=== PATIENT | female | born 1955 | race Caucasian/White ===

== ENCOUNTER 2017-07-31 12:52 | Inpatient (IN) | payer OTHER ==
--- NOTE | 2017-07-31 13:23 | EDPHY ---
H & P Stated Complaint: fall, r hip pain Time Seen by Provider: 07/31/17 13:22 HPI/ROS: HPI: This is a 61-year-old female who presents with Chief Complaint: fall, r hip pain Location: Right lateral hip Quality: Injury Duration: 3-4 hours ago Signs and Symptoms: No bleeding, no radiation, no numbness, no weakness, no tingling, no incontinence, + decreased range of motion, no swelling, + pain Timing: Acute Severity: Moderate Context: Patient has a history of right knee total replacement April 2017 presents to the emergency room status post tripping over moving rugs this morning around 9:30 a.m. she reports that she lost her balance and landed directly onto her right outer hip. She felt immediate pain and had to stay on the floor for a few minutes until the pain eased off. Her had to help her off the floor. She complains of pain with weight-bearing on the right lower extremity. She denies any head injury/LOC/amnesia/nausea/vomiting/neck pain/paresthesias. She took naproxen this morning and is declining any other pain medications in the emergency room. Modifying Factors: Naproxen Comment: ROS: see HPI Constitutional: No fever, no chills, no weight loss Eyes: No blurred vision Respiratory: No shortness of breath, no cough Cardiovascular: No chest pain Gastrointestinal: No nausea, no vomiting no diarrhea Genitourinary: No dysuria Extremities: No myalgias Neurologic: No weakness, no numbness Skin: No rashes Hematologic: No bruising, no bleeding MEDICAL/SURGICAL/SOCIAL HISTORY: Medical/Surgical history: R knee replacement, tonsillectomy, uterine ablation, SVT Social history: . CONSTITUTIONAL: polite and cooperative, adult white female who appears younger than stated age, wake and alert, no obvious distress HEENT: Atraumatic and normocephalic, PERRL, EOMI. Tympanic membranes clear. Oropharynx clear, no exudate and moist pink mucosa. Airway patent. No lymphadenopathy. No meningismus. Cardiovascular: Normal S1/S2, regular rate, regular rhythm, without murmur rub or gallop. PULMONARY/CHEST: Symmetrical and nontender. Clear to auscultation bilaterally. Good air movement. No accessory muscle usage. ABDOMEN: Soft, nondistended, nontender, no rebound, no guarding, no peritoneal signs, no masses or organomegaly. No CVAT. EXTREMITIES: 2/2 pulses, strength 5/5, right HIP: No deformity/bruising. Tenderness to palpation over the greater trochanter area. Legs equal in right length. Flexion to 90 , extension to 75 , hyper extension to 05, abduction to 05. Moderate Pain with internal rotation and external rotation. Right KNEE : Mild inflammation noted; well-healed vertical incision from past total replacement. No medial and lateral joint line tenderness, full extension to 180 , flexion to 120. No pain with varus and valgus exam. No pain with anterior drawer or posterior drawer test. no deformities, no clubbing, no cyanosis or edema. NEUROLOGICAL: no focal neuro deficits. GCS 15. SKIN: Warm and dry, no erythema. no rash. Good capillary refill. Source: Patient, Family () Exam Limitations: No limitations - Personal History Current Tetanus/Diphtheria Vaccine: Unsure Current Tetanus Diphtheria and Acellular Pertussis (TDAP): Unsure - Medical/Surgical History Hx Asthma: No Hx Chronic Respiratory Disease: No Hx Diabetes: No Hx Cardiac Disease: No Hx Renal Disease: No Hx Cirrhosis: No Hx Alcoholism: No Hx HIV/AIDS: No Hx Splenectomy or Spleen Trauma: No Other PMH: R knee replacement, tonsilectomy, uterine ablation, SVT, - Social History Smoking Status: Former smoker Constitutional: Initial Vital Signs Temperature (C) 37 C 07/31/17 13:17 Heart Rate 83 07/31/17 13:17 Respiratory Rate 16 07/31/17 13:17 Blood Pressure 95/73 L 07/31/17 13:17 O2 Sat (%) 96 07/31/17 13:17 O2 Delivery Mode Room Air O2 (L/minute) 99 Allergies/Adverse Reactions: No Known Allergies Allergy (Unverified 07/31/17 13:16) Home Medications: Medication Instructions Recorded Loratadine 07/31/17 Naproxen Sodium 07/31/17 Medical Decision Making - Diagnostics EKG Interpretation: 1356: 12 lead EKG: Indication: Arrhythmia Rhythm: Supraventricular tachycardia, rate of 180 beats per minute Welches: Normal Intervals: Normal QRS: Normal ST segments: Nonspecific changes INTERPRETATION: No acute ischemic changes The 12 lead EKG was interpreted by myself and with attending. 1424: 12 lead EKG: Indication: Follow-up Rhythm: Normal sinus rhythm, rate 82 beats per minute Welches: Normal Intervals: Normal QRS: Normal ST segments: Normal INTERPRETATION: Normal EKG The 12 lead EKG was interpreted by myself and with attending. ED Course/Re-evaluation: Right hip x-ray ordered No neurological deficits or head injury. No signs of neurovascular compromise/tenting of skin/compartment syndrome/ extremities and joints examined above and below area of concern and are neurovascularly intact. Patient politely declines any imaging of her knee as she reports she has no pain and has full range of motion. 1350: Notified by nurse that patient appears to be an SVT on the monitor. Telemetry shows SVT with rate in the 190s. Discussed case with attending Dr. Martinez. Valsalva maneuver x2 tried unsuccessfully. The patient placed on psychopaedic nurse, 2 L oxygen therapy, 500 cc fluid bolus, IV Dilaudid 1 mg given with conversion into normal sinus rhythm and rate in the 80s after only a few minutes. Patient has a history of SVT; reports more than 50+ episodes; all were able to be corrected with Valsalva maneuver. 1400: EKG shows SVT with a rate of 180; mild ST depression. Patient sitting on edge of bed. IV Dilaudid 1 mg given for pain control to get patient to sit in bed safely. 1415: Telemetry shows normal sinus with rate in the 80s. Currently has no complaints of chest pain/shortness of breath/palpitations. Resting comfortably in the bed. 1500: Right hip x-ray my read shows intracapsular; minimally displaced fracture. Consult to Dr. Victor. Last meal a bowl of cereal at 11:30 a.m. reports pain currently under control. Dr. Gustafson in [place] performed right knee total replacement. 1515: Spoke with Dr. Victor who kindly agrees to provide patient for further care and surgery. He will come down to the emergency room to speak with the patient. He asked that I consult the hospitalist in regards to the SVT episode in the emergency room and admission. Spoke with Dr. Hutson, who kindly agrees. 1530: Updated patient and on plan. Denies any pain at this time. Differential Diagnosis: Differential diagnosis includes but is not limited to femur fracture, lumbar strain, hip contusion. - Data Points Laboratory Results: Laboratory Results 07/31/17 14:10 07/31/17 14:10 07/31/17 07/31/17 07/31/17 14:10 14:10 14:10 WBC 12.15 10^3/uL H 10^3/uL (3.80-9.50) RBC 5.15 10^6/uL 10^6/uL (4.18-5.33) Hgb 15.2 g/dL g/dL (12.6-16.3) Hct 45.4 % % (38.0-47.0) MCV 88.2 fL fL (81.5-99.8) MCH 29.5 pg pg (27.9-34.1) MCHC 33.5 g/dL g/dL (32.4-36.7) RDW 13.7 % % (11.5-15.2) Plt Count 317 10^3/uL 10^3/uL (150-400) MPV 8.2 fL L fL (8.7-11.7) Neut % (Auto) 71.8 % % (39.3-74.2) Lymph % (Auto) 20.3 % % (15.0-45.0) Spencer % (Auto) 5.9 % % (4.5-13.0) Eos % (Auto) 1.2 % % (0.6-7.6) Baso % (Auto) 0.3 % % (0.3-1.7) Nucleat RBC Rel Count 0.0 % % (0.0-0.2) Absolute Neuts (auto) 8.72 10^3/uL H 10^3/uL (1.70-6.50) Absolute Lymphs (auto) 2.47 10^3/uL 10^3/uL (1.00-3.00) Absolute Monos (auto) 0.72 10^3/uL 10^3/uL (0.30-0.80) Absolute Eos (auto) 0.14 10^3/uL 10^3/uL (0.03-0.40) Absolute Basos (auto) 0.04 10^3/uL 10^3/uL (0.02-0.10) Absolute Nucleated RBC 0.00 10^3/uL 10^3/uL (0-0.01) Immature Gran % 0.5 % % (0.0-1.1) Immature Gran # 0.06 10^3/uL 10^3/uL (0.00-0.10) PT 12.7 SEC SEC (12.0-15.0) INR 0.93 (0.83-1.16) APTT 29.9 SEC SEC (23.0-38.0) Sodium 139 mEq/L mEq/L (135-145) Potassium 4.3 mEq/L mEq/L (3.5-5.2) Chloride 105 mEq/L mEq/L (97-110) Carbon Dioxide 18 mEq/l L mEq/l (22-31) Anion Gap 16 mEq/L mEq/L (8-16) BUN 11 mg/dL mg/dL (7-23) Creatinine 0.6 mg/dL mg/dL (0.6-1.0) Estimated GFR > 60 Glucose 121 mg/dL H mg/dL (70-100) Calcium 10.2 mg/dL mg/dL (8.5-10.4) Troponin I < 0.012 ng/mL ng/mL (0.000-0.034) Medications Given: Discontinued Medications Adenosine (Adenosine) 12 mg IVP EDNOW ONE Stop: 07/31/17 13:52 Last Admin: 07/31/17 14:21 Dose: Not Given Hydromorphone HCl (Dilaudid) 1 mg IVP EDNOW ONE Stop: 07/31/17 13:59 Last Admin: 07/31/17 14:16 Dose: 1 mg Sodium Chloride (Ns) 500 mls @ 1,000 mls/hr IV EDNOW ONE PRN Reason: Protocol Stop: 07/31/17 14:20 Last Admin: 07/31/17 14:16 Dose: 500 mls Departure - Departure Disposition: [facility] Inpatient Acute Clinical Impression: Paroxysmal SVT (supraventricular tachycardia) Closed intracapsular fracture of femur Qualifiers: Encounter type: initial encounter Laterality: right Qualified Code(s): S72.011A - Unspecified intracapsular fracture of right femur, initial encounter for closed fracture Condition: Fair
[2017-07-31] MEDS ORDERED: NS 500 ML IV ONE (13:51)
[2017-07-31] MEDS ORDERED: ADENOSINE 6 MG/2 ML VIAL IVP ONE (13:51)
[2017-07-31] MEDS ORDERED: HYDROmorphONE/DILAUDID 1 MG/ML INJ IVP ONE (13:58)
[2017-07-31] MEDS ORDERED: HYDROmorphONE/DILAUDID 1 MG/ML INJ ONE (13:58)
--- NOTE | 2017-07-31 13:58 | CPEKG ---
Heart Rate: 180 RR Interval: 333 QRSD Interval: 84 QT Interval: 260 QTC Interval: 451 P [place]: 0 QRS [place]: 59 T Wave [place]: 29 EKG Severity - ABNORMAL ECG - EKG Impression: SUPRAVENTRICULAR TACHYCARDIA EKG Impression: ST DEPRESSION, PROBABLY RATE RELATED Electronically Signed By: J Carlos Gorodn 31-Jul-2017 19:58:45
[2017-07-31 14:20] LABS: PLATELET COUNT 317 10^3/uL (150-400)
--- NOTE | 2017-07-31 14:25 | CPEKG ---
Heart Rate: 82 RR Interval: 732 P-R Interval: 144 QRSD Interval: 90 QT Interval: 364 QTC Interval: 425 P [place]: 79 QRS [place]: 52 T Wave [place]: 59 EKG Severity - NORMAL ECG - EKG Impression: SINUS RHYTHM Electronically Signed By: J Carlos Gordon 31-Jul-2017 19:58:45
[2017-07-31 14:28] LABS: INR 0.93 (0.83-1.16); PROTIME(PATIENT) 12.7 SEC (12.0-15.0)
[2017-07-31] MEDS ORDERED: HYDROmorphONE/DILAUDID 1 MG/ML INJ IVP PRN (16:11)
[2017-07-31] MEDS ORDERED: oxyCODONE IR 5 MG TAB PO PRN (16:11)
[2017-07-31] MEDS ORDERED: ACETAMINOPHEN 325 MG TAB PO PRN (16:11)
[2017-07-31] MEDS ORDERED: ONDANSETRON DISINTEGRATING 4 MG TAB PO PRN (16:11)
[2017-07-31] MEDS ORDERED: ONDANSETRON 4 MG/2 ML VIAL IVP PRN ×2 (16:11→21:26)
--- NOTE | 2017-07-31 16:39 | GHP ---
[f rep st] HISTORY AND PHYSICAL DATE OF ADMISSION: 07/31/2017 CHIEF COMPLAINT: Fall. HISTORY OF PRESENT ILLNESS: A 61-year-old female who fell today. Notably she had a right TKA 3 mir[address] Gustafson at the [facility]. She tripped over some moving blankets in her gar age. In an effort not to fall on her recently replaced knee, she spun and fell on her right hip. Minal oconnell had immediate hip pain. She was initially able to bear a little bit of weight on this hip. She th en sat down for some time, after that was unable to bear any weight. She has feeling in her foot. I n the ED, she was noted to have an episode of SVT. She notes that she has had these episodes for pro bably 7 years. They usually abort with Valsalva type maneuvers. This one did as well in the ED. Minal oconnell has a sensation of palpitations and mild tightness; however, no real chest pain. Otherwise, she wa s able to ambulate with no angina and achieve high heart rates with exercise prior to her TKA. She w as seen by a mule spinner Dr. Holt at the [facility] who reportedly cleared her for surgery. I revi ewed his note, and his note talks not necessarily about surgery but about catheter ablation options f or SVT. PAST MEDICAL/SURGICAL HISTORY: 1. SVT. 2. Seasonal allergies. MEDICATIONS: Please see medication reconciliation. ALLERGIES: No known drug allergies. SOCIAL HISTORY: She drinks about a glass a day of wine. FAMILY HISTORY: Reviewed and noncontributory. REVIEW OF SYSTEMS: 10-point review of systems is conducted and is negative except per HPI. PHYSICAL EXAM: VITAL SIGNS: Blood pressure 95/73, heart rate 83, respiration rate 16, saturating 96 % on room air. Temperature 37. GENERAL: The patient is a very pleasant female who is resting sligh tly uncomfortably. HEENT: Shows her to be normocephalic, atraumatic. CARDIOVASCULAR: Shows regula r rate and rhythm. No murmurs, rubs, or gallops. PULMONARY: Lungs clear to auscultation bilaterall y. ABDOMEN: Soft, nontender, nondistended. SKIN: No rash. : No Schwartz. NEUROLOGIC: Shows her to be alert and oriented x3. She is moving all extremities. PSYCHIATRIC: Shows normal mood and af fect. EXTREMITIES: Shows her right extremity to be slightly externally rotated. She has a dorsalis pedis pulse. She has sensation intact in the right foot. There is no bruising at the site of injur y. LABORATORY: Bicarb is 18. Troponins negative. INR 0.9. White count is 12. DATA: 1. I discussed this with Dr. Victor. He will plan on doing surgery tonight. 2. I personally viewed and interpreted her chest x-ray. This shows a normal-sized heart. This is c lear. 3. I reviewed her 2 EKGs. The first one is sinus rhythm. This is a normal EKG. There are no T-wav e inversions. No Q waves. 4. I reviewed her second EKG. This shows SVT. She has some likely rate-related ST depression in th e precordial leads. 5. I personally viewed and interpreted her hip x-ray that shows minimally displaced and impacted rig ht femoral neck fracture. IMPRESSION AND PLAN: 1. Right femoral neck fracture: Plan operative repair with Dr. Victor who planned to place surgic al screws tonight. Postop management will be per him. 2. Perioperative evaluation: She is able to exercise and achieve greater than 4 METs. She does hav e known supraventricular tachycardia, which has been evaluated by Cardiology. I did also discuss thi s informally with Dr. Saleh. Given the somewhat urgent nature of her surgery, I recommend that she proceed to surgery with no further intervention. This is a stable arrhythmia; we would not pursue ca theter ablation prior to surgery. I do not know that she will tolerate beta blockade given her sligh tly low blood pressure at this time. If she has arrhythmias, we will be available to assist perioper atively. 3. Venous thromboembolism risk: She will be at high risk postop. We will start DVT prophylaxis whe kenya farfaned by Dr. Victor. /[id number]/MODL
--- NOTE | 2017-07-31 16:59 | GCON ---
[f rep st] CONSULTATION ORTHOPEDIC CONSULTATION. REASON FOR CONSULTATION: Right hip fracture. HISTORY OF PRESENT ILLNESS: Tri is a 61-year-old female, who tripped over some rugs today and land ed directly onto her right hip and sustained a nondisplaced femoral neck fracture. She had an episod e of SVT in the emergency department, which she has had before. She recently underwent a right total knee arthroplasty down at the [place] and was cleared for that and we have gotten records from [facility] there who cleared her for her previous elective knee surgery. Other than that, she is healthy. PAST MEDICAL HISTORY: SVT. PAST SURGICAL HISTORY: Multiple right knee surgeries culminating in a right total knee arthroplasty 3-months ago. MEDICATIONS: 1. Naproxen. 2. Loratadine. ALLERGIES: No known drug allergies. She does have seasonal allergies. SOCIAL HISTORY: She is . Works at [employer]. Lives here in town. Former smoker, not currently smo steve. Occasional alcohol use. REVIEW OF SYSTEMS: No shortness of breath. Currently no chest pain. PHYSICAL EXAMINATION: VITAL SIGNS: Blood pressure is 95/73, heart rate 83, temperature is 37, respi ratory rate 16 on room air, oxygen saturation 96%. GENERAL: Alert and oriented x3. HEENT: Normoce phalic, atraumatic. Extraocular muscles intact. NECK: Supple. There is no lymphadenopathy. No JV D. CHEST: Clear to auscultation. CARDIOVASCULAR: Regular rate and rhythm. ABDOMEN: Soft, nonten lizett, nondistended. X-RAYS: AP pelvis and a frogleg show a minimally displaced femoral neck fracture. ASSESSMENT: Right hip fracture. PLAN: We have asked the Hospitalist, Dr. Hutson, to consult on this patient. He will admit her. Bimal oconnell has already spoken to Cardiology who has cleared her for surgery. He has also spoken with the Card iologist love at [facility] and obtain those records and review them. We will plan on surgery at [facility]. She last ate at 11:30 this morning. We will plan on percutaneous pinning of her righ t hip. She will be toe-touch weightbearing for 4 to 6 weeks postoperatively, which she understands. She will be on a blood thinner. We talked about the risks and benefits including infection, blood c lots, and the need to limit her weightbearing in the initial postoperative period. She understands t hat. Preoperative paperwork was completed. Consent was signed. /[id number]/MODL
[2017-07-31] MEDS ORDERED: ceFAZolin 2 GM/DEXTROSE 100 ML IV ONE (18:13)
[2017-07-31] MEDS ORDERED: ceFAZolin 2 GM/SWFI 2 GM/20 ML SYR IVP ONE (18:30)
--- NOTE | 2017-07-31 19:33 | PDANEPAE ---
ANE History of Present Illness Right Hip ORIF ANE Past Medical History - Cardiovascular History Hx Hypertension: Yes Hx Arrhythmias: No Hx Coronary Artery / Peripheral Vascular Disease: No Hx CHF / Valvular Disease: No - Pulmonary History Hx COPD: No Hx Recent Upper Respiratory Infection: No Hx Oxygen in Use at Home: No Hx Sleep Apnea: No Sleep Apnea Screening Result - Last Documented: Negative - Endocrine History Hx Diabetes: No Hypothyroid: No Hyperthyroid: No Obesity: no - Chronic Pain History Chronic Pain: Yes ANE Review of Systems Review of Systems: - Exercise capacity METS (RN): 4 METS ANE Patient History - Allergies Allergies/Adverse Reactions: No Known Allergies Allergy (Verified 07/31/17 16:59) - Home Medications Home Medications: Ascorbic Acid [Vitamin C 500 mg (*)] 4,000 mg PO DAILY 07/31/17 [Last Taken ] Ibuprofen [Motrin (*)] 400 mg PO Q2D PRN 07/31/17 [Last Taken 07/30/17] Loratadine [Claritin 10 mg] 10 mg PO DAILY 07/31/17 [Last Taken 07/31/17] Multivitamins [Multivitamin (*)] 1 each PO DAILY 07/31/17 [Last Taken 07/31/17] Naproxen [Naprosyn] 500 mg PO Q2D 07/31/17 [Last Taken 07/31/17] - NPO status NPO Since - Liquids (Date): 07/31/17 NPO Since - Liquids (Time): 11:30 NPO Since - Solids (Date): 07/31/17 NPO Since - Solids (Time): 11:30 - Anes Hx Anes Hx: post operative nausea - Smoking Hx Smoking Status: Former smoker - Alcohol Use Alcohol Use: Occasionally - Family Anes Hx Family Anes Hx: none ANE Labs/Vital Signs - Labs Result Diagrams: 07/31/17 14:10 07/31/17 14:10 - Vital Signs Blood Pressure: 123/72 Heart Rate: 73 Respiratory Rate: 16 O2 Sat (%): 94 Height: 187.96 cm Weight: 74.843 kg ANE Physical Exam - Airway Mallampati Score: Class 1 - Pulmonary Pulmonary: no respiratory distress - Cardiovascular Cardiovascular: regular rate and rhythym - ASA Status ASA Status: II ANE Anesthesia Plan Anesthesia Plan: spinal Total IV Anesthesia: Yes
[2017-07-31] MEDS ORDERED: MIDAZOLAM 2 MG/2 ML VIAL IVP ONE (19:35)
[2017-07-31] MEDS ORDERED: BUPIVACAINE/EPI 0.5% 30 ML SDV ONE (19:41)
[2017-07-31] MEDS ORDERED: BUPIVACAINE 0.5% 30 ML SDV ONE (19:49)
[2017-07-31] MEDS ORDERED: PROPOFOL 200 MG/20 ML VIAL ONE ×2 (19:52)
[2017-07-31] MEDS ORDERED: fentaNYL 100 MCG/2 ML INJ ONE (19:52)
[2017-07-31] MEDS ORDERED: HYDROCODONE/APAP 5/325 TAB PO PRN ×2 (21:25→21:26)
[2017-07-31] MEDS ORDERED: MEPERIDINE 25 MG/ML SYR IVP PRN (21:26)
[2017-07-31] MEDS ORDERED: NALOXONE HCL 0.4 MG/ML INJ IVP PRN (21:26)
[2017-07-31] MEDS ORDERED: fentaNYL 100 MCG/2 ML INJ IVP PRN (21:26)
[2017-07-31] MEDS ORDERED: OXYCODONE/APAP 5/325 TAB PO PRN (21:26)
[2017-07-31] MEDS ORDERED: D5W 1/2 NS W/ 20 KCl/L 1,000 ML IV SCH (21:30)
--- NOTE | 2017-07-31 21:32 | POSTOPPROG ---
Post Op Note Date of Operation: 07/31/17 Surgeon: Aaron Victor Anesthesiologist: nishant Anesthesia: Spinal Pre-op Diagnosis: RT femoral neck fracture Post-op Diagnosis: same Procedure: PCP rt hip Findings: min displaced fem neck fx Inf/Abcess present in the surg proc area at time of surgery?: No EBL: Minimal Complications: none
[2017-07-31] MEDS ORDERED: ceFAZolin 2 GM/DEXTROSE 100 ML IV SCH (22:00)
[2017-08-01] MEDS: OXYCODONE/APAP 5/325 TAB PO PRN ×3 (02:09→14:00)
[2017-08-01] MEDS: ceFAZolin 2 GM/SWFI 2 GM/20 ML SYR IVP SCH ×2 (03:21→12:22)
--- NOTE | 2017-08-01 04:16 | GOP ---
[f rep st] OPERATIVE REPORT DATE OF OPERATION: 07/31/2017 SURGEON: Aaron Victor MD ANESTHESIA: Spinal. ANESTHESIOLOGIST: Dr. Saunders. PREOPERATIVE DIAGNOSIS: Minimally displaced femoral neck fracture, right. POSTOPERATIVE DIAGNOSIS: Minimally displaced femoral neck fracture, right. PROCEDURE PERFORMED: Percutaneous pinning of femoral neck fracture, right. FINDINGS: ESTIMATED BLOOD LOSS: Minimal. INDICATIONS: The patient is a 61-year-old female who tripped and fell, landed directly on her right hip. She was brought to the emergency room. X-rays were obtained, which showed a minimally displace d femoral neck fracture. There is no evidence of osteoarthritis within the joint. Decision was made to proceed with a percutaneous pinning of the hip. DESCRIPTION OF PROCEDURE: After appropriate informed consent was obtained, patient was taken to the operating room, placed supine on the operating table. Time-out was performed. Patient was identifie d, correct site was identified, matched with the radiographs available in the room. She received 2 g of Ancef preoperatively. Following spinal anesthetic by Dr. Saunders, she was transferred over to the fracture table. Right lower extremity was placed in a traction boot. Left lower extremity was plac ed in a well-padded well leg mckeon. All bony prominences were well padded. I then added a little t raction and internal rotation, was able to reduce the fracture. We then prepped and draped the right hip in the usual sterile fashion. I placed 3 guide pins in an inverted triangle fashion, confirming that our trajectory in position with AP and lateral fluoroscopic images. I then made a small alexsander i ncision in the skin. Drilled the near cortex and placed 3 partially threaded cannulated screws, secu rely affixing the fracture. I confirmed their final position with a satisfactory tip to apex distance on both AP and lateral fluoroscopic imaging. Guidewires were removed. I closed the skin with 3-0 n ylon. Instilled 20 mL of 0.5% Marcaine with epinephrine around the incision. An occlusive sterile d ressing was applied. She was awakened from anesthesia, taken to the recovery room in satisfactory co ndition. There were no immediate intraoperative complications. COMPLICATIONS: None. IMPLANTS USED: [employer] partially threaded 6.5 mm cannulated screws x3. /[id number]/MODL
[2017-08-01 05:20] LABS: PLATELET COUNT 274 10^3/uL (150-400)
[2017-08-01 07:44] VITALS: TEMP 98.1
[2017-08-01] MEDS ORDERED: RIVAROXABAN 10 MG TAB PO SCH (09:00)
[2017-08-01] MEDS ORDERED: CETIRIZINE 10 MG TAB PO SCH (09:00)
--- NOTE | 2017-08-01 10:25 | POSTANESTH ---
Post Anesthetic Evaluation Cardiovascular Status: Normal, Stable Respiratory Status: Normal, Stable Level of Consciousness/Mental Status: Can Participate in Eval Pain Control: Adequate, Prn Tx Ordered Nausea/Vomiting Control: Adequate, Prn Tx Ordered Complications Possibly Related to Anesthesia: None Noted (Spinal needle site dry. Nontender, No inflamation)
--- NOTE | 2017-08-01 10:40 | PDMN ---
Medical Necessity Medical necessity: S600 displaced fx of femoral neck: 3 days femoral neck fx : in pt with hx of SVT,
--- NOTE | 2017-08-01 11:24 | PDIAF ---
- Diagnosis Diagnosis: hip fx Code Status: Full Code - Medication Management Discharge Medications: Medications to Continue on Transfer Ascorbic Acid [Vitamin C 500 mg (*)] 4,000 mg PO DAILY 07/31/17 [Last Taken ] Loratadine [Claritin 10 mg] 10 mg PO DAILY 07/31/17 [Last Taken 07/31/17] Multivitamins [Multivitamin (*)] 1 each PO DAILY 07/31/17 [Last Taken 07/31/17] Acetaminophen [Tylenol 325mg (*)] 650 mg PO Q4HRS PRN tab 08/01/17 [Last Taken Unknown] Rivaroxaban [Xarelto 10mg (*)] 10 mg PO DAILY #21 tab 08/01/17 [Last Taken Unknown] oxyCODONE/APAP 5/325 [Percocet 5/325 (*)] 1 - 2 tab PO Q3HRS PRN #15 tab [Last Taken Unknown] Discharge Medications: Refer to the Discharge Home Medication list for PRN reason. PICC Care - Routine: N/A - Orders Services needed: Home Care, Physical Therapy Home Care Face to Face: I certify that this patient was under my care and that I had the required [id number] encounter meeting the encounter requirements on the discharge day. My findings support the fact that the patient is homebound as defined in Home Care Face to Face Continued: CMS Chapter 7 Medicare Benefits Manual 30.1.1 , The condition of the patient is such that there exists a normal inability to leave home and consequently, leaving home would require a considerable and taxing effort. Diet Recommendation: no restrictions on diet - Follow Up Care Current Providers and Referrals: Tami Ballard MD [Primary Care Provider] - Aaron Victor MD [Medical Doctor] -
[2017-08-01 12:17] VITALS: BP 85/49; PULSE 82; RESP 17; O2SAT 93
--- NOTE | 2017-08-01 12:37 | ASMTLACE ---
JESUSE Length of stay for Answers: 2 days current admission Acuity / Level of Answers: Yes Care: Did the patient have an inpatient admission? # of Emergency department Answers: 1-2 visits in the last 6 months Score: 6 Date Signed: 08/01/2017 12:36 PM Electronically Signed By:Josselin Light RN
--- NOTE | 2017-08-01 16:15 | ASDISCHSUM ---
Discharge Information Plan Status:Home with Home Health Medically Cleared to Leave: Discharge Date:08/01/2017 03:07 PM CM D/C Disposition:Home Health Service ADT D/C Disposition:Home Health Service Projected Discharge Date:08/01/2017 11:00 AM Transportation at D/C: Discharge Delay Reason: Follow-Up Date:08/01/2017 11:00 AM Discharge Slot: Final Diagnosis: Placement Information Referral Type:*Home Health Care Services Referral ID:[id number] Provider Name:[facility] [place] Address 1:[address] Phone Number: Address 2: Fax Number: City:[place] Selection Factors: State:[place] Patient Contact Information Contact Name:YANELY Relationship:Life Partner Address:[address] Work Phone: City:[facility] Phone: State/Zip Code:[place] [address] Email: Financial Information Financial Class:HMO and PPO Plans Primary Plan Desc:[employer] Primary Plan Number:[id number] Secondary Plan Desc: Secondary Plan Number: Assessment Information Case Management Discharge Plan Note Case Management Discharge Discharge Order Complete? Answers: Yes Patient to Obtain Answers: via Family Medications Transportation Arranged Answers: Family/Friends Faxed Final Orders Answers: Yes Agency/Facility Transfer Answers: Yes Report Printed & Faxed to Receiving Agency Family Notified Answers: Yes Notes: pt contacted Discharge Comments Notes: Reviewed chart and discussed w/hospitalist who said pt will need Home PT. Pt will dc home with today and will be followed by [facility], the agency she has used in recent past. Spoke w/Kendra at [facility] who said they could accept pt. Orders/info sent through [employer]. Discussed dc poc w/pt. Date Signed: 08/01/2017 12:34 PM Electronically Signed By:Josselin Light RN LACE LACE Length of stay for Answers: 2 days current admission Acuity / Level of Answers: Yes Care: Did the patient have an inpatient admission? # of Emergency department Answers: 1-2 visits in the last 6 months Score: 6 Date Signed: 08/01/2017 12:36 PM Electronically Signed By:Josselin Light RN Intervention Information
--- NOTE | 2017-08-02 01:36 | GDS ---
[f rep st] DISCHARGE SUMMARY DISCHARGE DIAGNOSES: 1. Femoral neck fracture. 2. Pain. CONSULTATIONS: Dr. Victor of Orthopedics. PHYSICAL EXAM: GENERAL: The patient is alert. VITAL SIGNS: Afebrile at 36.7, pulse is 67, respira tory rate is 16, blood pressure is 107/46. She is saturating greater than 90% on room air. I have seen and evaluated the patient on the day of discharge. HOSPITAL COURSE: The patient is a 61-year-old female who presented to the emergency room after suffe ring a mechanical fall. She presented with hip pain. During this hospitalization she was evaluated and diagnosed with a right femoral neck fracture. She received a consultation from Dr. Victor as anna burden as surgical intervention with percutaneous pinning. She has worked with physical therapy. Her p ain is well controlled, and she is eager to be discharged home. There are no pending studies. DISCHARGE MEDICATIONS: Please refer to EMR form. I have provided the patient a prescription for Xar elto as well as Percocet. I reviewed the patient's disposition with Dr. Victor, who is in agreemen t with this plan. Patient will be discharged home to follow up with her primary care physician as we ll as Dr. Victor in 3 weeks for x-rays and suture removal. I spent greater than 35 minutes in the care, coordination, and management of this patient's dispositi on. /[id number]/MODL
== END 2017-08-01 15:07 | disposition home health service (06) | DRG 481 ==
LOC: F3N 17:19
PROVIDERS: ADMIT Student in an Organized Health Care Education/Training Program; ATTEND Hospitalist
PROC: 0QS634Z Reposition Right Upper Femur with Internal Fixation Device, Percutaneous Approach (ICD-10-PCS; principal; 2017-07-31 19:30)
DX: S72.001A Fracture of unspecified part of neck of right femur, initial encounter for closed fracture (principal); W01.0XXA Fall on same level from slipping, tripping and stumbling without subsequent striking against object, initial encounter; Y92.015 Private garage of single-family (private) house as the place of occurrence of the external cause; I47.1 Supraventricular tachycardia; I10 Essential (primary) hypertension; Z87.891 Personal history of nicotine dependence
CPT/HCPCS: 96374; 97116-GP; 97161-GP; 97166-GO; 97535-GO; C1713; C1769; J0153; J0690; J1170; J2250; J2704; J3010

== ENCOUNTER → 2017-12-28 | Outpatient (CLI) | payer OTHER | LOC: BMCIMAGING 08:27 | PROVIDERS: ATTEND Family Medicine | DX: Z12.31 Encounter for screening mammogram for malignant neoplasm of breast (principal) ==

== ENCOUNTER 2018-04-19 10:49 | Emergency (ER) | payer OTHER ==
[2018-04-19] MEDS ORDERED: ADENOSINE 6 MG/2 ML VIAL ONE (10:58)
[2018-04-19] MEDS ORDERED: NS 1,000 ML IV ONE ×3 (11:03)
--- NOTE | 2018-04-19 11:05 | EDPHY ---
H & P Stated Complaint: Palpitations nausea since 8am, hx SVT , and has URI Time Seen by Provider: 04/19/18 10:50 HPI/ROS: CHIEF COMPLAINT: Upper respiratory infection, SVT HISTORY OF PRESENT ILLNESS: The patient presents to the ED with a several day history of an upper respiratory infection characterized with symptoms of cough, myalgias and fatigue. The patient went to urgent care today and was noted to be tachycardic and in an SVT. She was referred to the ED for further evaluation. She does have a history of PSVT and has been offered ablation in the past which she has declined. The patient reports her last episode of SVT was following a orthopedic injury and it resolved with pain control. The patient denies any asymmetric calf pain or swelling. She denies significant abdominal pain. She does report nausea. She takes no regular medications. REVIEW OF SYSTEMS: A comprehensive 10 point review of systems is otherwise negative aside from elements mentioned in the history of present illness. Source: Patient Exam Limitations: No limitations - Medical/Surgical History Hx Asthma: No Hx Chronic Respiratory Disease: No Hx Diabetes: No Hx Cardiac Disease: No Hx Renal Disease: No Hx Cirrhosis: No Hx Alcoholism: No Hx HIV/AIDS: No Hx Splenectomy or Spleen Trauma: No Other PMH: R knee replacement x 2, tonsilectomy, uterine ablation, SVT, - Social History Smoking Status: Former smoker - Physical Exam Exam: General Appearance: Alert, no distress Eyes: Pupils equal and round no pallor or injection ENT, Mouth: Mucous membranes moist Respiratory: Coarse breath sounds bilaterally Cardiovascular: Tachycardic and regular Gastrointestinal: Abdomen is soft and nontender, no masses, bowel sounds normal Neurological: A&O, normal motor function, normal sensory exam, normal cranial nerves Skin: Warm and dry, no rashes Musculoskeletal: Neck is supple nontender Extremities: symmetrical, full range of motion Psychiatric: Patient is oriented X 3, there is no agitation Constitutional: Initial Vital Signs Temperature (C) 37.0 C 04/19/18 10:50 Heart Rate 186 H 04/19/18 10:50 Respiratory Rate 18 04/19/18 10:50 Blood Pressure 87/62 L 04/19/18 10:50 O2 Sat (%) 95 04/19/18 10:50 O2 Delivery Mode Room Air Allergies/Adverse Reactions: No Known Allergies Allergy (Verified 07/31/17 16:59) Home Medications: Medication Instructions Recorded Ascorbic Acid [Vitamin C 500 mg 4,000 mg PO DAILY 07/31/17 (*)] Loratadine [Claritin 10 mg] 10 mg PO DAILY 07/31/17 Multivitamins [Multivitamin (*)] 1 each PO DAILY 07/31/17 Acetaminophen [Tylenol 325mg (*)] 650 mg PO Q4HRS PRN tab 08/01/17 Rivaroxaban [Xarelto 10mg (*)] 10 mg PO DAILY #21 tab 08/01/17 oxyCODONE/APAP 5/325 [Percocet 1 - 2 tab PO Q3HRS PRN #15 tab 08/01/17 5/325 (*)] Albuterol [Proventil Inhaler HFA 1 - 2 puffs IH Q4H #1 mdi 04/19/18 (*)] Ondansetron Odt [Zofran Odt] 4 mg PO Q4PRN PRN #20 tab 04/19/18 Medical Decision Making - Diagnostics EKG Interpretation: EKG: Complete interpretation has been separately recorded in the [employer] archive. Summary impression: Supraventricular tachycardia, rate related ST depression. Imaging Results: Imaging Impressions Chest X-Ray 04/19/18 11:03 Impression: Mild peribronchial thickening suggesting airways disease/bronchitis. ED Course/Re-evaluation: The patient had an IV established. She was placed on a cardiac cath rn. The patient was offered IV adenosine however has requested we 1st attempt IV fluid rehydration. She is a competent decision maker and is currently hemodynamically stable. The patient did received 2 L of normal saline and did convert to a normal sinus rhythm. Further workup of her upper respiratory symptoms included a chest x-ray which demonstrated no evidence of an acute pneumonia. The remainder of the patient's metabolic panel did demonstrate mild dehydration without evidence of renal failure. I re-evaluated the patient at 1:00 p.m.. She is feeling much better. She would like to be discharged home. The patient will be given a prescription for Zofran for nausea. She is also given a prescription for albuterol for her bronchitis. Patient is advised to return to the ED for recurrent arrhythmia, worsening respiratory symptoms or other acute complaints. Differential Diagnosis: Differential diagnosis considered includes pneumonia, bronchitis, SVT, atrial fibrillation - Data Points Laboratory Results: Laboratory Results 04/19/18 11:05 11/02/18 11:05 04/19/18 04/19/18 04/19/18 11:07 11:05 11:05 WBC 17.43 10^3/uL H 10^3/uL (3.80-9.50) RBC 5.04 10^6/uL 10^6/uL (4.18-5.33) Hgb 15.5 g/dL g/dL (12.6-16.3) Hct 45.9 % % (38.0-47.0) MCV 91.1 fL fL (81.5-99.8) MCH 30.8 pg pg (27.9-34.1) MCHC 33.8 g/dL g/dL (32.4-36.7) RDW 12.5 % % (11.5-15.2) Plt Count 355 10^3/uL 10^3/uL (150-400) MPV 8.3 fL L fL (8.7-11.7) Neut % (Auto) 73.4 % % (39.3-74.2) Lymph % (Auto) 13.9 % L % (15.0-45.0) Reeves % (Auto) 11.5 % % (4.5-13.0) Eos % (Auto) 0.1 % L % (0.6-7.6) Baso % (Auto) 0.3 % % (0.3-1.7) Nucleat RBC Rel Count 0.0 % % (0.0-0.2) Absolute Neuts (auto) 12.79 10^3/uL H 10^3/uL (1.70-6.50) Absolute Lymphs (auto) 2.43 10^3/uL 10^3/uL (1.00-3.00) Absolute Monos (auto) 2.00 10^3/uL H 10^3/uL (0.30-0.80) Absolute Eos (auto) 0.01 10^3/uL L 10^3/uL (0.03-0.40) Absolute Basos (auto) 0.06 10^3/uL 10^3/uL (0.02-0.10) Absolute Nucleated RBC 0.00 10^3/uL 10^3/uL (0-0.01) Immature Gran % 0.8 % % (0.0-1.1) Immature Gran # 0.14 10^3/uL H 10^3/uL (0.00-0.10) RBC/WBC/PLT Morphology TNP Platelet Estimate TNP Sodium 132 mEq/L L mEq/L (135-145) Potassium 4.2 mEq/L mEq/L (3.3-5.0) Chloride 95 mEq/L L mEq/L (97-110) Carbon Dioxide 20 mEq/l L mEq/l (22-31) Anion Gap 17 mEq/L H mEq/L (6-14) BUN 13 mg/dL mg/dL (7-23) Creatinine 0.7 mg/dL mg/dL (0.6-1.0) Estimated GFR > 60 Glucose 125 mg/dL H mg/dL (70-100) Calcium 10.0 mg/dL mg/dL (8.5-10.4) Nasal Influenza A PCR NEGATIVE FOR FLU A (NEGATIVE) Nasal Influenza B PCR NEGATIVE FOR FLU B (NEGATIVE) Medications Given: Discontinued Medications Sodium Chloride (Ns) 1,000 mls @ 0 mls/hr IV ONCE ONE PRN Reason: Wide Open Stop: 04/19/18 11:04 Last Admin: 04/19/18 11:03 Dose: 1,000 mls Sodium Chloride (Ns) 1,000 mls @ 0 mls/hr IV ONCE ONE; Wide Open PRN Reason: Protocol Stop: 04/19/18 11:04 Last Admin: 04/19/18 11:04 Dose: 1,000 mls Departure - Departure Disposition: Home, Routine, Self-Care Clinical Impression: Acute bronchitis, Dehydration, Supraventricular tachycardia Condition: Good Instructions: Acute Bronchitis (ED) Additional Instructions: 1. Please use albuterol inhaler up to every 2 hr as needed for cough. 2. Zofran as needed for nausea. 3. Please try and increase your fluid intake as you likely were dehydrated today which precipitated your SVT. 4. Please return to the ED for any recurrent palpitations, tachycardia, chest pain or other acute complaints.
[2018-04-19 11:09] LABS: PLATELET COUNT 355 10^3/uL (150-400)
--- NOTE | 2018-04-19 11:23 | CPEKG ---
Test Reason : OPEN Blood Pressure : / mmHG Vent. Rate : 173 BPM Atrial Rate : 000 BPM P-R Int : 000 ms QRS Dur : 081 ms QT Int : 265 ms P-R-T Axes : 000 -06 051 degrees QTc Int : [address] depression, probably rate related Confirmed by Amor Rowell ([id number]) on 04/19/2018 11:23:03 AM Referred By: Confirmed By:Amor Rowell
[2018-04-19 13:09] VITALS: BP 110/85
== END 2018-04-19 13:07 | disposition home or self-care (01) ==
DX: J20.9 Acute bronchitis, unspecified (principal); I47.1 Supraventricular tachycardia; E86.0 Dehydration
CPT/HCPCS: J0153

== ENCOUNTER 2018-04-26 17:20 | Inpatient (IN) | payer OTHER ==
--- NOTE | 2018-04-26 17:42 | EDPHY ---
H & P Stated Complaint: dx with PNA Time Seen by Provider: 04/26/18 17:41 HPI/ROS: CHIEF COMPLAINT: Hypoxemia, diagnosed with pneumonia HISTORY OF PRESENT ILLNESS: The patient presents to the ED with hypoxemia, a productive cough and a reported diagnosis of pneumonia. The patient has been sick for a little over a week. She was seen in the emergency department 1 week ago with an SVT. She was treated at that point time with IV fluids with resolution of her symptoms. During that visit her chest x-ray demonstrated only bronchitis. The patient was discharged home with an albuterol inhaler. She followed up with her primary care provider today secondary to ongoing symptoms. The patient denies any abdominal pain. She does report moderate to severe shortness of breath. REVIEW OF SYSTEMS: A comprehensive 10 point review of systems is otherwise negative aside from elements mentioned in the history of present illness. Source: Patient Exam Limitations: No limitations - Personal History Current Tetanus/Diphtheria Vaccine: Yes Current Tetanus Diphtheria and Acellular Pertussis (TDAP): Yes - Medical/Surgical History Hx Asthma: No Hx Chronic Respiratory Disease: No Hx Diabetes: No Hx Cardiac Disease: No Hx Renal Disease: No Hx Cirrhosis: No Hx Alcoholism: No Hx HIV/AIDS: No Hx Splenectomy or Spleen Trauma: No Other PMH: R knee replacement x 2, tonsilectomy, uterine ablation, SVT, PNA - Social History Smoking Status: Former smoker - Physical Exam Exam: General Appearance: Alert, no distress Eyes: Pupils equal and round no pallor or injection ENT, Mouth: Mucous membranes moist Respiratory: Diffuse rhonchorous breath sounds Cardiovascular: Tachycardic, regular Gastrointestinal: Abdomen is soft and nontender, no masses, bowel sounds normal Neurological: 5/5 strength all 4 extremities Skin: Warm and dry, no rashes Musculoskeletal: Neck is supple nontender Extremities: symmetrical, full range of motion Psychiatric: Patient is oriented X 3, there is no agitation Constitutional: Initial Vital Signs Temperature (C) 37.2 C 04/26/18 17:29 Heart Rate 105 H 04/26/18 17:29 Respiratory Rate 20 04/26/18 17:29 Blood Pressure 135/59 H 04/26/18 17:29 O2 Sat (%) 81 L 04/26/18 17:29 O2 Delivery Mode Room Air O2 (L/minute) 15 Allergies/Adverse Reactions: No Known Allergies Allergy (Verified 04/26/18 17:29) Home Medications: Medication Instructions Recorded Ascorbic Acid [Vitamin C 500 mg 4,000 mg PO DAILY 07/31/17 (*)] Loratadine [Claritin 10 mg] 10 mg PO DAILY 07/31/17 Multivitamins [Multivitamin (*)] 1 each PO DAILY 07/31/17 Acetaminophen [Tylenol 325mg (*)] 650 mg PO Q4HRS PRN tab 08/01/17 Rivaroxaban [Xarelto 10mg (*)] 10 mg PO DAILY #21 tab 08/01/17 oxyCODONE/APAP 5/325 [Percocet 1 - 2 tab PO Q3HRS PRN #15 tab 08/01/17 5/325 (*)] Albuterol [Proventil Inhaler HFA 1 - 2 puffs IH Q4H #1 mdi 04/19/18 (*)] Ondansetron Odt [Zofran Odt] 4 mg PO Q4PRN PRN #20 tab 04/19/18 Medical Decision Making - Diagnostics Imaging Results: Chest x-ray PA/lateral: Images obtained at outside facility and imported into PACS system demonstrated a left lower lobe infiltrate ED Course/Re-evaluation: The patient presents the ED with progressive respiratory symptoms which have resulted in a left lower lobe pneumonia. The patient arrives and is noted to be hypoxemic. She is hemodynamically stable without evidence of a recurrent SVT or septic physiology. Blood cultures x2 have been obtained. The patient's initial venous lactate is reassuring at 1.7. Patient is started on IV Levaquin. She will require admission to the hospital. The patient is noted to have leukocytosis, tachycardia and hypoxemia in the setting of a community-acquired pneumonia. The patient does meet criteria for severe sepsis. The her initial lactate is 1.7. The patient has been started on broad-spectrum antibiotics. She does not require an IV fluid bolus. Differential Diagnosis: Differential diagnosis considered includes asthma, bronchitis, pneumonia, sepsis , severe sepsis Critical Care Time: Critical care time exclusive of procedures and exclusive of the PA's time was 35 minutes, performed by myself, Amor Rowell MD. The patient presents the ED with acute pneumonia, significant hypoxemia, tachycardia, leukocytosis and sepsis/severe sepsis. Blood cultures x2 have been obtained she is started on broad-spectrum antibiotics and will be admitted to the hospital for further resuscitation and stabilization. - Data Points Laboratory Results: Laboratory Results 04/26/18 17:59 04/26/1818 18 17:59 17:59 17:59 WBC 18.40 10^3/uL H 10^3/uL (3.80-9.50) RBC 4.46 10^6/uL 10^6/uL (4.18-5.33) Hgb 13.5 g/dL g/dL (12.6-16.3) Hct 39.5 % % (38.0-47.0) MCV 88.6 fL fL (81.5-99.8) MCH 30.3 pg pg (27.9-34.1) MCHC 34.2 g/dL g/dL (32.4-36.7) RDW 12.4 % % (11.5-15.2) Plt Count 496 10^3/uL H 10^3/uL (150-400) MPV 8.3 fL L fL (8.7-11.7) Neut % (Auto) 82.5 % H % (39.3-74.2) Lymph % (Auto) 10.1 % L % (15.0-45.0) Sabine % (Auto) 5.5 % % (4.5-13.0) Eos % (Auto) 0.6 % % (0.6-7.6) Baso % (Auto) 0.2 % L % (0.3-1.7) Nucleat RBC Rel Count 0.0 % % (0.0-0.2) Absolute Neuts (auto) 15.17 10^3/uL H 10^3/uL (1.70-6.50) Absolute Lymphs (auto) 1.85 10^3/uL 10^3/uL (1.00-3.00) Absolute Monos (auto) 1.02 10^3/uL H 10^3/uL (0.30-0.80) Absolute Eos (auto) 0.11 10^3/uL 10^3/uL (0.03-0.40) Absolute Basos (auto) 0.04 10^3/uL 10^3/uL (0.02-0.10) Absolute Nucleated RBC 0.00 10^3/uL 10^3/uL (0-0.01) Immature Gran % 1.1 % % (0.0-1.1) Immature Gran # 0.21 10^3/uL H 10^3/uL (0.00-0.10) VBG Lactic Acid 1.7 mmol/L mmol/L (0.7-2.1) Sodium Pending Potassium Pending Chloride Pending Carbon Dioxide Pending Anion Gap Pending BUN Pending Creatinine Pending Estimated GFR Pending Glucose Pending Calcium Pending Departure - Departure Disposition: [facility] Acute Clinical Impression: Severe sepsis, Hypoxemia Pneumonia Qualifiers: Pneumonia type: due to unspecified organism Laterality: left Lung location: lower lobe of lung Qualified Code(s): J18.1 - Lobar pneumonia, unspecified organism Condition: Fair Referrals: Tami Ballard MD [Primary Care Provider] - As per Instructions
[2018-04-26 18:20] LABS: PLATELET COUNT 496 10^3/uL (150-400)
[2018-04-26] MEDS ORDERED: NS 2,200 ML IV ONE (18:26)
[2018-04-26] MEDS ORDERED: ONDANSETRON 4 MG/2 ML VIAL IVP PRN (18:57)
[2018-04-26] MEDS ORDERED: ACETAMINOPHEN 325 MG TAB PO PRN (18:57)
[2018-04-26] MEDS ORDERED: ONDANSETRON DISINTEGRATING 4 MG TAB PO PRN (18:57)
[2018-04-26] MEDS ORDERED: IBUPROFEN 200 MG TAB PO PRN (21:32)
[2018-04-26] MEDS ORDERED: POTASSIUM CL 20 MEQ TAB PO ONE (21:33)
[2018-04-26] MEDS ORDERED: IPRATROPIUM/ALBUTEROL 3 ML DEYVIAL IH PRN (21:33)
[2018-04-26] MEDS ORDERED: guaiFENesin 200 MG TAB PO PRN (21:34)
[2018-04-26] MEDS: NS 1,000 ML IV SCH (22:00)
--- NOTE | 2018-04-26 22:31 | GHP ---
DATE OF ADMISSION: 04/26/2018 CHIEF COMPLAINT: Pneumonia. HISTORY OF PRESENT ILLNESS: A pleasant 62-year-old female with history of SVT, who was sent over fro m PCP for diagnosis of pneumonia. She was seen in the ER a week ago with URI symptoms including prod uctive cough, runny nose, fevers. At that time, she was diagnosed with SVT that resolved with IV flu ids. Chest x-ray at that time showed only bronchitis. She was discharged home with albuterol inhale r. Symptoms have been persistent with a cough, runny nose, and increased shortness of breath. She has h ad decreased food intake but drinking fluids. Had mild nausea and has been more fatigued, sleeping a ll day. Says the fever broke yesterday. No headache. She saw her PCP today. Chest x-ray revealed a left-sided pneumonia. PAST MEDICAL HISTORY: SVT, no ablation. Seasonal allergies. PAST SURGICAL HISTORY: Right femur fracture, right TKA. SOCIAL HISTORY: Lives in [place] with her . Has 2 kids and 2 granddaughters. 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 FAMILY HISTORY: Mom of a stroke. Father with CHF. HOME MEDICATIONS: Advil as needed, albuterol, multivitamin, Claritin. ALLERGIES: None. PHYSICAL EXAMINATION: VITAL SIGNS: Temperature is 37.1, blood pressure 146/68, heart rate 100, now 92, respirations 20, and 81% on room air. GENERAL: Fatigue. No acute distress. HEENT: PERRLA. D ry mucous membranes. CV: Regular with an occasional extra beat. LUNGS: Crackles in the left base. Increased work of accessory muscles with cough. GI: Soft, nontender, nondistended. Positive heidi l sounds. : No Schwartz. MUSCULOSKELETAL: 5/5 upper and lower extremity strength. NEURO: 2-12 in tact. PSYCH: Alert and oriented x3. Very pleasant. LABS: WBC is 18, hemoglobin 13, hematocrit 39, platelets 496. Lactate is 1.7. Sodium 135, potassiu m 2.8, chloride 89, carbon dioxide 32, BUN 7, creatinine 0.4, glucose 112, calcium 9.4. IMAGING: Chest x-ray: Personally reviewed outside imaging with a left-sided pneumonia. ASSESSMENT/PLAN: 1. Sepsis: Evidenced with tachycardia, elevated white count, and pneumonia. Lactate is normal. Bl ood cultures are pending. 2. Community-acquired pneumonia: Continue Levaquin. Cultures are pending. 3. Acute hypoxic respiratory failure: Evidenced by room air saturation of 81%. Use of accessory mu scles with coughing. 4. Leukocytosis: Due to acute infection. Repeat in the morning. 5. Hypokalemia: Replete. 6. Patient has seasonal allergies: Claritin. 7. Diet: Regular. 8. Deep venous thrombosis prophylaxis: Lovenox. DISPOSITION: Observation admission given sepsis, hypokalemia. /[id number]/MODL
--- NOTE | 2018-04-27 07:40 | PDMN ---
Medical Necessity Medical necessity: Pt meets inpt criteria per MD order and MCG [id number], Pneumonia , Community Acquired. 62 y/o presented w/increasing SOB and URI symptoms, recently seen in ER for this treated outpt, now presenting w/worsening symptoms. Admitted w/pneumonia and sepsis w/ tachycardia, hypoxemia w/ RA O2 sat of 81% requiring 5L O2 or more via oxymizer, and hypokalemia- potassium 2.8. Est LOS>2MN for ongoing management of above.
--- NOTE | 2018-04-27 08:26 | ASMTCMCOM ---
CM Note CM Note Notes: Patient admitted for PNA, Sepsis. Lives at home with supportive family, still working. Don't anticipate any d/c needs at this time. Case Management available should needs arise. Plan: Likely Independent Date Signed: 04/27/2018 08:25 AM Electronically Signed By:Najma Goldberg RN
[2018-04-27] MEDS ORDERED: Herbals/Supplements -Info Only PO SCH (09:00)
[2018-04-27] MEDS: ENOXAPARIN 40 MG/0.4 ML SYR SC SCH ×2 (09:47→09:49)
[2018-04-27] MEDS: CETIRIZINE 10 MG TAB PO SCH (09:47)
[2018-04-27] MEDS: MULTIVITAMINS 1 EACH TAB PO SCH (09:47)
[2018-04-27] MEDS: NS 1,000 ML IV SCH (09:48)
[2018-04-27] MEDS ORDERED: ALBUTEROL 3 ML DEYVIAL IH PRN (10:21)
[2018-04-27] MEDS: IPRATROPIUM/ALBUTEROL 3 ML DEYVIAL IH SCH ×3 (11:23→22:28)
[2018-04-27] MEDS ORDERED: IOPAMIDOL (ISOVUE 370) 100 ML BTL IV ONE (14:39)
--- NOTE | 2018-04-27 16:43 | HOSPPROG ---
Hospitalist Progress Note Assessment/Plan: * Acute respiratory failure -very SOB with evidence of resp distress - sats drop immediately to 80% RA when off mask -requiring up to 17L of O2 here -CTA negative for PE * Pneumonia with severe sepsis -Levaquin -still febrile today * RAD exacerbation -nebs * SVT -no recurrence * Hypokalemia - replete Subjective: A little better Objective: Vital Signs Temp Pulse Resp BP Pulse Ox 37.9 C 96 18 130/62 H 91 L 04/27/18 15:57 04/27/18 15:57 04/27/18 15:57 04/27/18 15:57 04/27/18 15:57 Microbiology 04/26/18 21:05 Respiratory Panel (PCR) - Final Nasal, Sinus - Swab Laboratory Results 04/27/18 04:32 04/27/18 04:32 04/26/18 04/27/18 04/28/18 05:59 05:59 05:59 Intake Total 2850 Balance 2850 CXR viewed, my personal interpretation is - less infiltrate than I would expect CT chest - no PE, + PNA - Physical Exam Constitutional: no apparent distress, appears nourished, not in pain Cardiovascular: regular rate and rhythym, no murmur, rub, or gallop Respiratory: expiratory wheeze, inspiratory crackles, respiratory distress, rhonchi Skin: no rashes or abrasions, no fluctuance, no induration Neurologic: AAOx3, sensation intact bilaterally Psychiatric: interacting appropriately, not anxious, not encephalopathic, thought process linear ICD10 Worksheet Patient Problems: Problems Problem Status Onset Hypoxemia Acute Pneumonia Acute Severe sepsis Acute Closed intracapsular fracture of femur Acute Paroxysmal SVT (supraventricular tachycardia) Acute
[2018-04-28 05:17] LABS: PLATELET COUNT 435 10^3/uL (150-400)
[2018-04-28] MEDS: IPRATROPIUM/ALBUTEROL 3 ML DEYVIAL IH SCH ×4 (06:23→20:08)
[2018-04-28] MEDS ORDERED: PROTOCOL POTASSIUM 1 DOSE MISC PRN (09:07)
[2018-04-28] MEDS ORDERED: POTASSIUM CL 10 MEQ TAB PO ONE (11:19)
[2018-04-28] MEDS: CETIRIZINE 10 MG TAB PO SCH (11:51)
[2018-04-28] MEDS: ENOXAPARIN 40 MG/0.4 ML SYR SC SCH (11:51)
[2018-04-28] MEDS: guaiFENesin 600 MG TAB.ER PO SCH ×2 (11:51→20:47)
[2018-04-28] MEDS: MULTIVITAMINS 1 EACH TAB PO SCH (11:52)
[2018-04-28] MEDS ORDERED: PIPERACILLIN/TAZO 4.5 GM/DEX 100 ML IV SCH (12:00)
--- NOTE | 2018-04-28 15:17 | GCON ---
CRITICAL CARE CONSULTATION DATE OF CONSULTATION: 04/28/2018 HISTORY OF PRESENT ILLNESS: This patient is a 62-year-old female with a history of supraventricular tachycardia that has been somewhat problematic, though she has not yet had an ablation. There has be en consideration for this. In any case, about a week ago, she had upper respiratory infection type s ymptoms and went to the emergency department where she had runs of SVT at that time. She was given I V fluids and albuterol with symptomatic improvement. A chest x-ray showed no pneumonia at that time; however, over the course of the next week, she continued to have similar symptoms of cough, rhinorrh ea, and sputum change from clear to yellow to somewhat brown, and increasing shortness of breath. At her primary care physician's office, she was hypoxic to 81% and an outside chest x-ray showed a left lower lobe pneumonia. On arrival to the emergency department, [place] [address]. She was given Lev aquin and oxygen, and said that she did feel like she was getting better with less sputum production. On the , she had a repeat chest x-ray showing by bilateral basilar infiltrates and her oxygen r equirement was increasing. A CT angiogram showed no pulmonary embolism, but bilateral lower lobe con solidations, and she was treated with nebulizers. Today, her white count is down to about 15,000, but she was having trouble with oxygenation on the fl oor. She felt quite fine, however. Subsequently, she was transferred to the step-down unit for furt her observation. When I talked to her, she said that she felt much better. Her cough was certainly better and her oxygen saturation was 91% to 93% on 5 L OxyMask, which she said worked better than the nasal cannula. She does report smoking history, but has no known COPD, but felt that the breathing treatments she was getting here was helping her quite a bit. REVIEW OF SYSTEMS: Otherwise, negative. PAST MEDICAL HISTORY: Includes: 1. SVT as described above. 2. Seasonal allergies. PAST SURGICAL HISTORY: Remote femur fracture with open reduction/internal fixation. Other surgical history, includes a right total knee arthroplasty. SOCIAL HISTORY: She did smoke a pack a day from the age of 16 to about age 57. No significant alcoh ol or recreational drugs. FAMILY HISTORY: Includes stroke. CURRENT MEDICATIONS: Include Tylenol, DuoNeb, Zyrtec, Lovenox, Mucinex, Levaquin, multivitamins, Zof ran, Zosyn started today. PHYSICAL EXAM: VITAL SIGNS: She had a T-max of 38.8 yesterday morning, has been afebrile today. Bl ood pressure 109/43 heart rate of 92 sinus rhythm, respirations 23, oxygen saturation 94% on 10 L oxy mask. GENERAL: She is very pleasant woman in no apparent distress. Did not appear to be toxic. W as able to speak in full sentences without using accessory muscles for breathing. HEENT: Pupils are equally round and reactive to light. Nonicteric and noninjected. Mucous membranes moist without er ythema or exudate. NECK: Supple without adenopathy or jugular vein distention. LUNGS: She did hav e had coarse breath sounds, primarily left greater than right, but no obvious wheezing. HEART: Regu lar rate and rhythm without murmurs, rubs, or gallops. ABDOMEN: Soft, nontender, nondistended witho ut hepatosplenomegaly EXTREMITIES: No clubbing, cyanosis, or edema. NEUROLOGIC: Nonfocal, includin g cranial nerves, deep tendon reflexes. SKIN: Warm and dry, without evidence of rash. OBJECTIVE DATA: Includes the imaging studies as described above. Her white count was 18.4 when she arrived; it is 15.3 today. Hematocrit 33, platelets 435. Basic metabolic panel was remarkable for a potassium of 3.2, otherwise normal. BNP 662. Urine Legionella and Streptococcus pneumoniae antigen s are pending. Blood cultures are currently negative. Respiratory panel was also negative. ASSESSMENT/PLAN: 1. Hypoxemia related to underlying pneumonia. I think she is being treated well. I am not sure the Zosyn is necessarily required at this time. I think this may be represent overkill, though patients with chronic obstructive pulmonary disease sometimes are at increased for Pseudomonas infection. In any case, she seems to be relatively stable. I encouraged her to use incentive spirometry and ambul ate around the ICU as much as she could tolerate. I do not think bronchoscopy is necessary right now . I do not see any evidence of malignancy on her CT scan and there has been certainly no hemoptysis at this point. The fact that she is afebrile, her cough is better, and white count is decreasing sug gests improvement from an infectious perspective. She did not have a procalcitonin when she arrived, but sometimes the decreasing levels can be used as a marker of improving infection. I will add one on today, though it may be difficult to interpret. 2. Possible chronic obstructive pulmonary disease. She does endorse sputum production on most days for at least 3 months for at least the last 2 years, which is consistent with chronic bronchitis. On ce she recovers, she will need complete pulmonary function testing and may need ongoing nebulizers. She can certainly use them as needed now. She appears to have significant benefit while using them. She can follow up with me in clinic when she is discharged and I can pursue that more thoroughly. 3. Supraventricular tachycardia. This is apparently well controlled at this time. No further treat ment is required. She may need Cardiology eventually, but I am not so sure she will during this hosp italization. /[id number]/MODL
[2018-04-28] MEDS ORDERED: LACTULOSE 20 GM/30 ML UDCUP PO PRN (15:53)
[2018-04-28] MEDS ORDERED: BISACODYL 10 MG SUPP PR PRN (15:53)
[2018-04-28] MEDS ORDERED: MAGNESIUM HYDROXIDE 30 ML UDCUP PO PRN (15:53)
[2018-04-28] MEDS ORDERED: POLYETHYLENE GLYCOL 3350 17 GM PKT PO PRN (15:53)
--- NOTE | 2018-04-28 16:30 | HOSPPROG ---
Hospitalist Progress Note Assessment/Plan: * Acute respiratory failure -very hypoxic overnight - only 88% 13L -now finally improving - weaned down to 5L now * Pneumonia with severe sepsis -Levaquin * RAD exacerbation -nebs -outpatient PFT eval for COPD given smoking history * SVT -no recurrence -outpatient eval for possible ablation * Hypokalemia - replete Subjective: SOB with any activity, desats with just simple conversation Objective: Vital Signs Temp Pulse Resp BP Pulse Ox 37.2 C 89 24 H 120/50 L 92 04/28/18 15:31 04/28/18 15:31 04/28/18 15:31 04/28/18 15:31 04/28/18 15:31 Microbiology 04/26/18 21:05 Respiratory Panel (PCR) - Final Nasal, Sinus - Swab Laboratory Results 04/28/18 04:26 04/28/18 04:26 04/27/18 04/28/18 04/29/18 05:59 05:59 05:59 Intake Total 2850 2250 900 Output Total 1050 150 Balance 2850 1200 750 d/w Dr Denson regarding pulmonary consultation tele - NSR cta chest - positive PNA - Physical Exam Constitutional: no apparent distress, appears nourished, not in pain Cardiovascular: regular rate and rhythym, no murmur, rub, or gallop Respiratory: expiratory wheeze, inspiratory crackles, respiratory distress, No rhonchi Gastrointestinal: normoactive bowel sounds, soft, non-tender abdomen, no palpable masses Skin: no rashes or abrasions, no fluctuance, no induration Neurologic: AAOx3, sensation intact bilaterally Psychiatric: interacting appropriately, not anxious, not encephalopathic, thought process linear ICD10 Worksheet Patient Problems: Problems Problem Status Onset Paroxysmal SVT (supraventricular tachycardia) Acute Closed intracapsular fracture of femur Acute Pneumonia Acute Severe sepsis Acute Hypoxemia Acute
--- NOTE | 2018-04-28 16:41 | ASMTCMCOM ---
CM Note CM Note Notes: Patient transferred to room 256. Date Signed: 04/28/2018 04:40 PM Electronically Signed By:Rachel Castaneda
[2018-04-28] MEDS: SENNOSIDES/DOCUSATE SODIUM TAB PO SCH (20:49)
[2018-04-29] MEDS ORDERED: POTASSIUM CL 20 MEQ TAB PO ONE (01:51)
[2018-04-29] MEDS: IPRATROPIUM/ALBUTEROL 3 ML DEYVIAL IH SCH ×5 (03:57→21:02)
[2018-04-29] MEDS ORDERED: POTASSIUM CL 10 MEQ TAB PO ONE ×2 (08:37→19:51)
[2018-04-29] MEDS: guaiFENesin 600 MG TAB.ER PO SCH ×2 (08:51→21:54)
[2018-04-29 10:06] LABS: PLATELET COUNT 531 10^3/uL (150-400)
[2018-04-29] MEDS: MULTIVITAMINS 1 EACH TAB PO SCH (10:35)
[2018-04-29] MEDS: ENOXAPARIN 40 MG/0.4 ML SYR SC SCH (10:35)
[2018-04-29] MEDS: CETIRIZINE 10 MG TAB PO SCH (10:35)
[2018-04-29] MEDS: SENNOSIDES/DOCUSATE SODIUM TAB PO SCH ×2 (10:35→21:54)
--- NOTE | 2018-04-29 11:13 | HOSPPROG ---
Hospitalist Progress Note Assessment/Plan: * Acute respiratory failure 2/2 PNA - required 13 LPM last night, down to 5 LPM today -cont to wean O2 as able * Pneumonia with severe sepsis - sepsis physiology resolved -cont Levaquin -legionella and pneumococcal Ags pending * RAD exacerbation -cont nebs -outpatient PFT eval for COPD given smoking history * SVT - on arrival, resolved with IVF's -no recurrence -outpatient eval for possible ablation * Hypokalemia - repleted * DVT PPLX - Lovenox * Dispo - cont inpt, transfer to med/surg Subjective: Pt feels like she is slowly getting better. Breathing easier, less cough. No fevers/chills overnight. No CP. Taking po. Objective: Vital Signs Temp Pulse Resp BP Pulse Ox 36.9 C 80 16 112/61 96 04/29/18 07:38 04/29/18 10:59 04/29/18 10:59 04/29/18 07:38 04/29/18 10:59 Laboratory Results 04/29/18 09:15 04/29/18 05:09 04/28/18 04/29/18 04/30/18 05:59 05:59 05:59 Intake Total 2250 3470 Output Total 1050 550 Balance 1200 2920 - Physical Exam Constitutional: no apparent distress Eyes: PERRL Ears, Nose, Mouth, Throat: moist mucous membranes Cardiovascular: regular rate and rhythym Respiratory: no respiratory distress, inspiratory crackles Gastrointestinal: normoactive bowel sounds, soft, non-tender abdomen Skin: warm Musculoskeletal: full muscle strength Neurologic: AAOx3 Psychiatric: interacting appropriately ICD10 Worksheet Patient Problems: Problems Problem Status Onset Hypoxemia Acute Pneumonia Acute Severe sepsis Acute Closed intracapsular fracture of femur Acute Paroxysmal SVT (supraventricular tachycardia) Acute
[2018-04-29 11:22] LABS: HIV TYPE 1 AND 2 NEGATIVE (NEGATIVE)
[2018-04-30 05:31] LABS: PLATELET COUNT 550 10^3/uL (150-400)
[2018-04-30] MEDS: IPRATROPIUM/ALBUTEROL 3 ML DEYVIAL IH SCH ×5 (05:52→20:44)
[2018-04-30] MEDS: MULTIVITAMINS 1 EACH TAB PO SCH (09:18)
[2018-04-30] MEDS: ENOXAPARIN 40 MG/0.4 ML SYR SC SCH (09:19)
[2018-04-30] MEDS: CETIRIZINE 10 MG TAB PO SCH (09:19)
[2018-04-30] MEDS: SENNOSIDES/DOCUSATE SODIUM TAB PO SCH ×2 (09:20→20:04)
[2018-04-30] MEDS: guaiFENesin 600 MG TAB.ER PO SCH ×2 (09:20→20:04)
--- NOTE | 2018-04-30 13:32 | HOSPPROG ---
Hospitalist Progress Note Assessment/Plan: * Acute respiratory failure 2/2 PNA - O2 requirement 15 LPM --> 5 LPM -cont to wean O2 as able * Pneumonia with severe sepsis - sepsis physiology resolved -cont Levaquin -legionella and pneumococcal Ags pending * RAD exacerbation -cont nebs -outpatient PFT eval for COPD given smoking history * SVT - on arrival, resolved with IVF's -no recurrence -outpatient eval for possible ablation * Hypokalemia - repleted * DVT PPLX - Lovenox * Dispo - cont inpt, transfer to med/surg Subjective: Pt feels better. Less cough. No fevers. Denies CP or SOB. Still on 5 LPM O2, no desats overnight. Objective: Vital Signs Temp Pulse Resp BP Pulse Ox 36.9 C 85 21 H 97/64 L 87 L 04/30/18 11:22 04/30/18 11:22 04/30/18 11:22 04/30/18 11:22 04/30/18 11:22 Microbiology 04/26/18 21:05 Respiratory Panel (PCR) - Final Nasal, Sinus - Swab No Organism Detected By Pcr Laboratory Results 04/30/18 05:08 04/30/18 05:08 04/29/18 04/30/18 05/01/18 05:59 05:59 05:59 Intake Total 3470 950 Output Total 550 Balance 2920 950 - Physical Exam Constitutional: no apparent distress Eyes: PERRL Ears, Nose, Mouth, Throat: moist mucous membranes Cardiovascular: regular rate and rhythym Respiratory: no respiratory distress, reduced air movement, inspiratory crackles Gastrointestinal: normoactive bowel sounds, soft, non-tender abdomen Skin: warm Musculoskeletal: full muscle strength Neurologic: AAOx3 Psychiatric: interacting appropriately ICD10 Worksheet Patient Problems: Problems Problem Status Onset Hypoxemia Acute Pneumonia Acute Severe sepsis Acute Closed intracapsular fracture of femur Acute Paroxysmal SVT (supraventricular tachycardia) Acute
--- NOTE | 2018-05-01 06:38 | PDHOMEO2F ---
Home Oxygen Face to Face Home Orders: I certify that a physician or a nurse practitioner or physician's video library assistant has had a [id number] encounter with this patient on the date of this order due to the diagnosis listed, which relates to the primary reason the patient requires home oxygen. Alternative treatments have been tried, or considered, and deemed ineffective. It is anticipated that supplemental oxygen will result in improvement with treatment. Home oxygen qualifying diagnosis: pneumonia, suspected copd SpO2 on room air (%): 85 Frequency of home oxygen needed: continuous Home oxygen liters per minute: 4 LPM Home oxygen delivery device: nasal cannula Concentrator: Yes E-tanks for mobility and back up: Yes If ordering portable O2, is the patient mobile in the home?: Yes I certify that, based on these findings, the home oxygen is medically necessary for this patient for the following length of time. Length of time home oxygen needed: 99 years
[2018-05-01 07:13] VITALS: BP 115/65
[2018-05-01] MEDS: CETIRIZINE 10 MG TAB PO SCH (09:04)
[2018-05-01] MEDS: ENOXAPARIN 40 MG/0.4 ML SYR SC SCH (09:05)
[2018-05-01] MEDS: SENNOSIDES/DOCUSATE SODIUM TAB PO SCH (09:05)
[2018-05-01] MEDS: guaiFENesin 600 MG TAB.ER PO SCH (09:09)
[2018-05-01] MEDS: MULTIVITAMINS 1 EACH TAB PO SCH (09:09)
--- NOTE | 2018-05-01 09:56 | ASDISCHSUM ---
Discharge Information Plan Status:Home with DME or Oxygen Medically Cleared to Leave:04/30/2018 Discharge Date:04/30/2018 CM D/C Disposition:Home, Routine, Self-Care ADT D/C Disposition:Home, Routine, Self-Care Projected Discharge Date:04/30/2018 Transportation at D/C: Discharge Delay Reason: Follow-Up Date:04/30/2018 Discharge Slot: Final Diagnosis: Placement Information Patient Contact Information Contact Name:YANELY Relationship: Address:[address] Work Phone: City:[place] [facility] Phone: State/Zip Code:[place] [address] Email: Financial Information Financial Class:BCOP Primary Plan Desc:[employer] PPO Primary Plan Number:[id number] Secondary Plan Desc: Secondary Plan Number: Assessment Information [facility] CM Progress Note CM Note CM Note Notes: Patient admitted for PNA, Sepsis. Lives at home with supportive family, still working. Don't anticipate any d/c needs at this time. Case Management available should needs arise. Plan: Likely Independent Date Signed: 04/27/2018 08:25 AM Electronically Signed By:Najma Goldberg RN [facility] CM Progress Note CM Note CM Note Notes: Patient transferred to room 256. Date Signed: 04/28/2018 04:40 PM Electronically Signed By:Rachel Castaneda Intervention Information
--- NOTE | 2018-05-01 09:56 | ASMTLACE ---
LACE Length of stay for Answers: 4-6 days current admission Acuity / Level of Answers: Yes Care: Did the patient have an inpatient admission? Comorbidities - select Answers: Other Notes: SVT all that apply # of Emergency department Answers: 1-2 visits in the last 6 months Score: 9 Date Signed: 05/01/2018 09:55 AM Electronically Signed By:Carmela Maradiaga RN
--- NOTE | 2018-05-01 10:00 | ASMTCMCOM ---
CM Note CM Note Notes: Patient medically cleared for discharge to home. She will discharge with oxygen. No other needs noted at this time. CM available if other needs arise. Plan: Dc to home independently. Date Signed: 05/01/2018 09:59 AM Electronically Signed By:Carmela Maradiaga RN
== END 2018-05-01 11:04 | disposition home or self-care (01) | DRG 871 ==
LOC: F2W 20:15 → F2N 04-28 12:43 → F1N 04-29 12:37
PROVIDERS: ADMIT Internal Medicine; ATTEND Internal Medicine
DX: A41.9 Sepsis, unspecified organism (principal); J18.8 Other pneumonia, unspecified organism; J96.01 Acute respiratory failure with hypoxia; J45.901 Unspecified asthma with (acute) exacerbation; E87.6 Hypokalemia; R65.20 Severe sepsis without septic shock; Z87.891 Personal history of nicotine dependence; Z96.651 Presence of right artificial knee joint
CPT/HCPCS: 87449-90; 97165-GO; J1650; J1956; J2543; J7613; Q9967